=== PATIENT | female | born 1950 | race Caucasian/White ===

== ENCOUNTER 2016-11-08 07:17 | Outpatient (CLI) | payer OTHER, MEDICARE ==
[2016-11-08 13:24] LABS: CHOL/HDL RATIO 3.5 (<4.4); CHOLESTEROL 206 mg/dL; HDL CHOLESTEROL 59 mg/dL; LDL/HDL RATIO 2.1 (<4.4); TRIGLYCERIDES 131 mg/dL; VLDL CHOLESTEROL 26 mg/dL
== END 2016-11-08 07:18 | disposition home or self-care (01) ==
LOC: LAB.WCP 07:17
PROVIDERS: ATTEND Physician Assistant Medical
DX: E78.5 Hyperlipidemia, unspecified (principal)
CPT/HCPCS: 36415; 80061

== ENCOUNTER 2017-03-31 08:54 | Outpatient (CLI) | payer OTHER, MEDICARE ==
--- NOTE | 2017-04-01 19:12 | Mammography Report ---
DIGITAL SCREENING MAMMOGRAM: 03/31/2017 CLINICAL INDICATION: A 66-year-old nulliparous patient for screening. COMPARISON: 03/2016, 07/2014, 06/2013, 03/2012, 09/2010, 08/2009. TECHNIQUE: Routine CC and MLO projections as well as bilateral laterally exaggerated craniocaudal vi ews were obtained of the breasts. The breasts again demonstrate heterogeneously dense fibroglandular parenchyma bilaterally. Coarse an d punctate, typically benign calcifications are present. No suspicious masses, clustered microcalcif ications, or regions of architectural distortion are identified. IMPRESSION: BENIGN FINDINGS. RECOMMENDATION: ROUTINE ANNUAL SCREENING UNLESS OTHERWISE CLINICALLY INDICATED. BIRADS CATEGORY: 2, BENIGN FINDINGS. STANDARD QUALIFYING STATEMENTS 1. This examination was reviewed with the aid of Computed-Aided Detection (CAD). 2. A negative or benign imaging report should not delay biopsy if clinically suspicious findings are present. Consider surgical consultation if warranted. More than 5% of cancers are not identified b y imaging. 3. Dense breasts may obscure an underlying neoplasm. :9 JOB #: [id number] EXT JOB #:[id number]
== END 2017-03-31 08:55 | disposition home or self-care (01) ==
LOC: DI 08:54
PROVIDERS: ATTEND Family Medicine
DX: Z12.31 Encounter for screening mammogram for malignant neoplasm of breast (principal)
CPT/HCPCS: 77067

== ENCOUNTER 2017-10-09 08:00 | Outpatient (CLI) | payer OTHER, MEDICARE ==
[2017-10-09 19:09] LABS: BASOPHILS % (AUTO) 0.7 %; EOSINOPHILS # (AUTO) 0.1 10^3/uL (0.0-0.7); EOSINOPHILS % (AUTO) 1.3 %; HGB - HEMOGLOBIN 13.2 g/dL (12.0-16.0); LYMPHOCYTES # (AUTO) 1.3 10^3/uL (1.5-3.5); LYMPHOCYTES % (AUTO) 27.4 %; MEAN CORPUSCULAR HEMOGLOBIN 31.3 pg (27.0-31.0); MEAN CORPUSCULAR HGB CONC 32.6 g/dL (32.0-36.0); MEAN PLATELET VOLUME 9.9 fL (7.9-10.8); MONOCYTES # (AUTO) 0.4 10^3/uL (0.0-1.0); NEUTROPHILS % (AUTO) 62.6 %; PLT - PLATELET COUNT 183 10^3/uL (130-450); RED BLOOD COUNT 4.22 10^6/uL (4.20-5.40); RED CELL DISTRIBUTION WIDTH 13.4 % (12.0-15.0); WHITE BLOOD COUNT 4.8 x10^3/uL (4.8-10.8)
[2017-10-09 19:28] LABS: ALBUMIN/GLOBULIN RATIO 1.4 (1.0-2.2); ALKALINE PHOSPHATASE 67 IU/L (42-121); ALT ALANINE AMINOTRANSFERASE 17 IU/L (10-60); AST ASPARTATE AMINOTRANSFERASE 26 IU/L (10-42); BILIRUBIN,TOTAL 0.6 mg/dL (0.2-1.0); BUN - BLOOD UREA NITROGEN 28 mg/dL (6-20); CARBON DIOXIDE - CO2 26 mmol/L (21-32); CHLORIDE 104 mmol/L (101-111); CHOL/HDL RATIO 3.9 (<4.4); CHOLESTEROL 210 mg/dL; CREATININE 0.7 mg/dL (0.4-1.0); GFR - MDRD 83 (>89); GLUCOSE 114 mg/dL (70-100); HDL CHOLESTEROL 54 mg/dL; LDL CHOLESTEROL,CALCULATED 118 mg/dL; LDL/HDL RATIO 2.2 (<4.4); SODIUM 138 mmol/L (135-145); TOTAL PROTEIN 6.8 g/dL (6.7-8.2); VLDL CHOLESTEROL 38 mg/dL
== END 2017-10-09 08:01 | disposition home or self-care (01) ==
LOC: LAB.WCP 08:00
PROVIDERS: ATTEND Family Medicine
DX: R10.2 Pelvic and perineal pain (principal)
CPT/HCPCS: 36415; 80053; 80061; 83721; 85025; 86304

== ENCOUNTER 2018-03-18 09:37 | Outpatient (CLI) | payer OTHER, MEDICARE ==
[2018-03-18 14:27] LABS: BASOPHILS % (AUTO) 0.6 %; EOSINOPHILS % (AUTO) 0.7 %; HGB - HEMOGLOBIN 14.3 g/dL (12.0-16.0); LYMPHOCYTES % (AUTO) 16.4 %; MEAN CORPUSCULAR HEMOGLOBIN 32.4 pg (27.0-31.0); MEAN CORPUSCULAR HGB CONC 33.8 g/dL (32.0-36.0); MEAN CORPUSCULAR VOLUME 95.9 fL (81.0-99.0); MEAN PLATELET VOLUME 9.8 fL (7.9-10.8); MONOCYTES # (AUTO) 0.4 10^3/uL (0.0-1.0); MONOCYTES % (AUTO) 7.7 %; NEUTROPHILS # (AUTO) 4.3 10^3/uL (1.5-6.6); NEUTROPHILS % (AUTO) 74.6 %; PLT - PLATELET COUNT 206 10^3/uL (130-450); RED BLOOD COUNT 4.41 10^6/uL (4.20-5.40); RED CELL DISTRIBUTION WIDTH 13.8 % (12.0-15.0); WHITE BLOOD COUNT 5.8 x10^3/uL (4.8-10.8)
[2018-03-18 14:33] LABS: ALBUMIN 4.3 g/dL (3.2-5.5); ALBUMIN/GLOBULIN RATIO 1.5 (1.0-2.2); ALKALINE PHOSPHATASE 68 IU/L (42-121); ALT ALANINE AMINOTRANSFERASE 20 IU/L (10-60); AST ASPARTATE AMINOTRANSFERASE 26 IU/L (10-42); BILIRUBIN,TOTAL 0.7 mg/dL (0.2-1.0); BUN - BLOOD UREA NITROGEN 20 mg/dL (6-20); CHOL/HDL RATIO 3.3 (<4.4); CHOLESTEROL 225 mg/dL; CREATININE 0.8 mg/dL (0.4-1.0); GFR - MDRD 71 (>89); HDL CHOLESTEROL 68 mg/dL; LDL CHOLESTEROL,CALCULATED 129 mg/dL; LDL/HDL RATIO 1.9 (<4.4); TOTAL PROTEIN 7.1 g/dL (6.7-8.2); VLDL CHOLESTEROL 28 mg/dL
[2018-03-18 15:06] LABS: CALCIUM 8.9 mg/dL (8.5-10.3); CARBON DIOXIDE - CO2 27 mmol/L (21-32); CHLORIDE 105 mmol/L (101-111); GLUCOSE 85 mg/dL (70-100); SODIUM 140 mmol/L (135-145)
[2018-03-19 11:22] LABS: HEPATITIS C ANTIBODY REACTIVE (NON-REACTIVE)
== END 2018-03-18 09:38 | disposition home or self-care (01) ==
LOC: LAB.WCP 09:37
PROVIDERS: ATTEND Family Medicine
DX: R73.01 Impaired fasting glucose (principal); E78.5 Hyperlipidemia, unspecified; M85.80 Other specified disorders of bone density and structure, unspecified site; Z11.59 Encounter for screening for other viral diseases
CPT/HCPCS: 36415; 80053; 80061; 83721; 85025; 86803

== ENCOUNTER 2018-03-23 14:51 | Outpatient (CLI) | payer OTHER, MEDICARE ==
--- NOTE | 2018-03-24 09:46 | DEXA Report ---
Reason: OTHER OSTEOPOROSIS Procedure Date: 03/23/2018 Accession Number: [id number] / [id number] Procedure: DEX - Dexa Spine and/or Hip CPT Code: FULL RESULT: EXAM: Dexa Spine and/or Hip DATE: 03/23/2018 3:20 PM CLINICAL HISTORY: Postmenopausal state. History of osteopenia TECHNIQUE: Dual energy x-ray absorptiometry (DXA) was performed on a [employer] System. Regions measured are the AP Spine, femoral neck, and if needed forearm. COMPARISON: 01/04/2016 In accordance with the International Society for Clinical Densitometry (ISCD) guidelines, data from previous exams may be reanalyzed using current recommendations and techniques. This is done to allow a more accurate basis for comparison with the current study. FINDINGS: The data for the lumbar spine is as follows: BMD (g/cm/cm) T-SCORE Z-SCORE REGION L1 1.139 0.1 1.8 L2 1.197 0.0 1.7 L3 1.166 -0.3 1.4 L4 1.380 1.5 3.2 TOTAL 1.226 0.4 2.1 NOTE: All evaluable vertebrae are used for classification The data for the hip is as follows: BMD (g/cm/cm) T-SCORE Z-SCORE REGION Neck 0.833 -1.5 0.2 TOTAL 0.920 -0.7 0.8 NOTE: The femoral neck or total proximal femur, whichever is lowest, is used for classification. DXA RESULTS SUMMARY: Spine SCAN DATE AGE BMD CHANGE VS CHANGE VS PREVIOUS PREVIOUS % 1/23[birth year]2018 [age] 1.226 0.037* 3.1* 01/04/2016 [age] 1[age]189 * Denotes significant change at the 95% confidence level. Denotes dissimilar scan types or analysis methods. DXA RESULTS SUMMARY: Hip SCAN DATE AGE BMD CHANGE VS CHANGE VS PREVIOUS PREVIOUS % 1/23/2018 67.3 0.920 0.019 2.1 01/04/2016 65.1 0.901 * Denotes significant change at the 95% confidence level. Denotes dissimilar scan types or analysis methods. IMPRESSION: THE WHO CLASSIFICATION BASED ON THE INTERNATIONAL REFERENCE STANDARD IS OSTEOPENIA. THE FRACTURE RISK IS INCREASED. RECOMMENDATION: Patients with diagnosis of osteoporosis or osteopenia should have regular bone mineral density assessment. For those eligible for Medicare, routine testing is allowed once every 2 years. Testing frequency can be increased for patients who have rapidly progressing disease or for those who are receiving medical therapy to restore bone mass. COMMENT: World Health Organization (WHO) definitions for osteoporosis and osteopenia: NORMAL BMD: T-score at -1.0 or higher, fracture risk is low OSTEOPENIA BMD: T-score between -1.0 and -2.5, fracture risk is increased. OSTEOPOROSIS BMD: T-score at -2.5 or lower, fracture risk is high. National Osteoporosis Foundation recommends: 1. Obtain adequate dietary calcium (at least 1200 mg per day) and vitamin D (400-800 international units per day). 2. Participate, as appropriate, in regular weightbearing and muscle-strengthening exercise. 3. Avoid tobacco use and reduce alcohol and caffeine intake. 4. For more detailed information see the website at www.NOF.org.
== END 2018-03-23 14:52 | disposition home or self-care (01) ==
LOC: DI 14:51
PROVIDERS: ATTEND Internal Medicine Endocrinology, Diabetes & Metabolism
DX: M85.88 Other specified disorders of bone density and structure, other site (principal)
CPT/HCPCS: 77080

== ENCOUNTER 2018-04-10 08:21 | Outpatient (CLI) | payer OTHER, MEDICARE ==
--- NOTE | 2018-04-13 10:03 | Mammography Report ---
Reason: SCREENING MAMMO Procedure Date: 04/10/2018 Accession Number: [id number] / [id number] Procedure: BERTA - Screening Mammo w/Haseeb CPT Code: FULL RESULT: EXAM: Screening Mammo w/Haseeb DATE: 04/10/2018 8:51 AM CLINICAL HISTORY: Routine screening. No reported personal or family history of breast cancer TECHNIQUE: Bilateral CC and MLO views were obtained. COMPARISON: 03/31/2017 through 06/11/2013 FINDINGS: The breasts demonstrate heterogeneously dense fibroglandular parenchyma bilaterally. There are no suspicious masses, calcifications or areas of distortion. IMPRESSION: Negative examination RECOMMENDATION: Routine annual screening unless otherwise clinically indicated. BI-RADS CATEGORY 1: Negative STANDARD QUALIFYING STATEMENTS: 1. This examination was not reviewed with the aid of Computer-Aided Detection (CAD). 2. A negative or benign imaging report should not preclude biopsy if clinically suspicious findings are present. 3. Dense breasts may obscure an underlying neoplasm. 4. This examination was reviewed with the aid of 3D breast imaging (tomosynthesis).
== END 2018-04-10 08:22 | disposition home or self-care (01) ==
LOC: DI 08:21
DX: Z12.31 Encounter for screening mammogram for malignant neoplasm of breast (principal)
CPT/HCPCS: 77063; 77067

== ENCOUNTER 2018-07-08 08:09 | Outpatient (CLI) | payer BC, MEDICARE, OTHER ==
[2018-07-08 12:40] LABS: ALBUMIN 3.9 g/dL (3.2-5.5); ALBUMIN/GLOBULIN RATIO 1.3 (1.0-2.2); BILIRUBIN,TOTAL 0.9 mg/dL (0.2-1.0); CREATININE 0.7 mg/dL (0.4-1.0); TOTAL PROTEIN 6.8 g/dL (6.7-8.2)
== END 2018-07-08 08:10 | disposition home or self-care (01) ==
LOC: LAB.WCP 08:09
PROVIDERS: ATTEND Family Medicine
DX: R76.0 Raised antibody titer (principal)
CPT/HCPCS: 36415; 80053; 87522

== ENCOUNTER 2018-08-07 13:05 | Outpatient (CLI) | payer BC, MEDICARE, OTHER ==
[2018-08-07 14:19] LABS: T4 (THYROXINE) 8.62 ug/dL (6.09-12.23)
[2018-08-07 14:22] LABS: THYROID STIMULATING HORMONE 1.65 uIU/mL (0.34-5.60)
[2018-08-07 14:25] LABS: FREE T4 (FREE THYROXINE) 1.09 ng/dL (0.58-1.64)
== END 2018-08-07 13:06 | disposition home or self-care (01) ==
LOC: LAB 13:05
PROVIDERS: ATTEND Internal Medicine Endocrinology, Diabetes & Metabolism
DX: E89.0 Postprocedural hypothyroidism (principal); C73 Malignant neoplasm of thyroid gland
CPT/HCPCS: 36415; 84436; 84439; 84443

== ENCOUNTER 2018-08-16 10:32 | Outpatient (CLI) | payer BC, MEDICARE, OTHER | END 2018-08-16 10:33 | disposition short-term general hospital (02) | LOC: EMS 10:32 | PROVIDERS: ATTEND Surgery | DX: R00.2 Palpitations (principal); R53.1 Weakness; R51 Headache | CPT/HCPCS: A0425; A0429; A0888 ==

== ENCOUNTER 2019-05-21 08:22 | Outpatient (CLI) | payer BC, MEDICARE, OTHER ==
--- NOTE | 2019-05-24 08:45 | Mammography Report ---
Reason: ROUTINE MAMMO Procedure Date: 05/21/2019 Accession Number: [id number] / [id number] Procedure: BERTA - Screening Mammo w/Haseeb CPT Code: Final Report FULL RESULT: EXAM: Screening Mammo w/Haseeb DATE: 05/21/2019 8:50 AM CLINICAL HISTORY: Screening encounter. History of nulliparity. TECHNIQUE: (B) - Bilateral CC and MLO views were obtained. COMPARISON: 04/10/2018 through 09/26/2009. PARENCHYMAL PATTERN: (D) - The breast(s) demonstrate(s) heterogeneously dense fibroglandular parenchyma. FINDINGS: There are no suspicious masses, calcifications, or areas of distortion. IMPRESSION: Negative examination. BI-RADS category 1. RECOMMENDATION: (ANNUAL) - Recommend routine annual screening mammography. BI-RADS CATEGORY: (1) - Negative. STANDARD QUALIFYING STATEMENTS: 1. This examination was not reviewed with the aid of Computer-Aided Detection (CAD). 2. A negative or benign imaging report should not preclude biopsy if clinically suspicious findings are present. 3. Dense breasts may obscure an underlying neoplasm. 4. This examination was reviewed with the aid of 3D breast imaging (tomosynthesis).
== END 2019-05-21 08:23 | disposition home or self-care (01) ==
LOC: DI 08:22
DX: Z12.31 Encounter for screening mammogram for malignant neoplasm of breast (principal)
CPT/HCPCS: 77063; 77067

== ENCOUNTER 2020-03-30 08:27 | Outpatient (CLI) | payer BC, MEDICARE, OTHER ==
--- NOTE | 2020-03-30 14:52 | DEXA Report ---
PROCEDURE: Dexa Spine and/or Hip INDICATIONS: OSTEOPOROSIS TECHNIQUE: Dual energy x-ray absorptiometry (DXA) was performed on a [employer] System. Regions measur ed are the AP Spine, femoral neck, and if needed forearm. COMPARISON: 03/23/2018. FINDINGS: Lumbar Spine: Bone Mineral Density 1.187 g/cm/cm,T score 0.1, normal bone mineral density Left Femoral Neck: Bone Mineral Density 0.872 g/cm/cm, T score -1.1, osteopenia (T score greater or equal to -1.0: NORMAL) (T score from -1.1 to -2.4: OSTEOPENIA) (T score less than or equal to -2.5 to: OSTEOPOROSIS) Impression: Osteopenia. Patient is at increased risk for fracture. Patients with diagnosis of osteoporosis or osteopenia should have regular bone mineral density assess ment. For those eligible for Medicare, routine testing is allowed once every 2 years. Testing frequ ency can be increased for patients who have rapidly progressing disease or for those who are receivin g medical therapy to restore bone mass. Reviewed by: Chance Reyes MD on 03/30/2020 2:51 PM PDT Approved by: Chance Reyes MD on 03/30/2020 2:51 PM PDT Station ID: [id number]
== END 2020-03-30 08:28 | disposition home or self-care (01) ==
LOC: DI 08:27
PROVIDERS: ATTEND Internal Medicine Endocrinology, Diabetes & Metabolism
DX: M85.852 Other specified disorders of bone density and structure, left thigh (principal)
CPT/HCPCS: 77080

== ENCOUNTER 2020-06-16 07:58 | Outpatient (CLI) | payer BC, MEDICARE, OTHER ==
[2020-06-16 12:35] LABS: BASOPHILS % (AUTO) 0.7 %; EOSINOPHILS # (AUTO) 0.1 10^3/uL (0.0-0.7); EOSINOPHILS % (AUTO) 1.5 %; HGB - HEMOGLOBIN 14.1 g/dL (12.0-16.0); LYMPHOCYTES # (AUTO) 1.4 10^3/uL (1.5-3.5); LYMPHOCYTES % (AUTO) 33.8 %; MEAN CORPUSCULAR HEMOGLOBIN 31.9 pg (27.0-31.0); MEAN CORPUSCULAR HGB CONC 31.7 g/dL (32.0-36.0); MEAN CORPUSCULAR VOLUME 100.7 fL (81.0-99.0); MEAN PLATELET VOLUME 11.5 fL (7.9-10.8); MONOCYTES # (AUTO) 0.4 10^3/uL (0.0-1.0); MONOCYTES % (AUTO) 9.6 %; NEUTROPHILS # (AUTO) 2.2 10^3/uL (1.5-6.6); NEUTROPHILS % (AUTO) 54.2 %; PLT - PLATELET COUNT 203 10^3/uL (130-450); RED BLOOD COUNT 4.42 10^6/uL (4.20-5.40); RED CELL DISTRIBUTION WIDTH 12.8 % (12.0-15.0); WHITE BLOOD COUNT 4.1 x10^3/uL (4.8-10.8)
[2020-06-16 12:55] LABS: ALBUMIN 4.3 g/dL (3.2-5.5); ALBUMIN/GLOBULIN RATIO 1.7 (1.0-2.2); ALKALINE PHOSPHATASE 66 IU/L (42-121); ALT ALANINE AMINOTRANSFERASE 18 IU/L (10-60); AST ASPARTATE AMINOTRANSFERASE 25 IU/L (10-42); BILIRUBIN,TOTAL 0.8 mg/dL (0.2-1.0); BUN - BLOOD UREA NITROGEN 21 mg/dL (6-20); CARBON DIOXIDE - CO2 28 mmol/L (21-32); CHLORIDE 106 mmol/L (101-111); CHOLESTEROL 242 mg/dL; CREATININE 0.8 mg/dL (0.4-1.0); GLUCOSE 91 mg/dL (70-100); HDL CHOLESTEROL 61 mg/dL; LDL CHOLESTEROL,CALCULATED 167 mg/dL; LDL/HDL RATIO 2.7 (<4.4); SODIUM 142 mmol/L (135-145); TOTAL PROTEIN 6.9 g/dL (6.7-8.2); VLDL CHOLESTEROL 14 mg/dL
[2020-06-16 13:20] LABS: HEMOGLOBIN A1c% 5.4 % (4.27-6.07)
== END 2020-06-16 07:59 | disposition home or self-care (01) ==
LOC: LAB.N 07:58
PROVIDERS: ATTEND Family Medicine
DX: R00.2 Palpitations (principal); E78.5 Hyperlipidemia, unspecified; R73.01 Impaired fasting glucose; C73 Malignant neoplasm of thyroid gland; M85.80 Other specified disorders of bone density and structure, unspecified site
CPT/HCPCS: 36415; 80053; 80061; 83036; 83721; 84443; 85025

== ENCOUNTER 2020-12-26 08:52 | Outpatient (CLI) | payer MEDICARE, OTHER ==
--- NOTE | 2020-12-27 13:48 | Mammography Report ---
BILATERAL DIGITAL SCREENING MAMMOGRAM 3D/2D: 12/26/2020 CLINICAL: Routine screening. Comparison is made to exams dated: 05/21/2019 mammogram, 04/10/2018 mammogram, 03/31/2017 mammogram, 03/08/2016 mammogram, and 08/10/2014 mammogram - [facility]. The tissue of both roberto [address] sts is heterogeneously dense. This may lower the sensitivity of mammography. No significant masses, calcifications, or other findings are seen in either breast. There has been no significant interval change. IMPRESSION: NEGATIVE There is no mammographic evidence of malignancy. A 1 year screening mammogram is recommended. This exam was interpreted at Station ID: [id number]. NOTE: For mammograms, a report in lay terms will be sent to the patient. Approximately 15% of breast malignancies will not be visualized mammographically. In the management of a palpable breast mass, a negative mammogram must not discourage biopsy of a clinically suspicious lesion. Electronically Signed By: Darwin cole/naomy:12/26/2020 11:42:03 ACR BI-RADS Category 1: Negative 3341F PARENCHYMAL PATTERN: (D) - The breast(s) demonstrate(s) heterogeneously dense fibroglandular parsultana giles. BI-RADS CATEGORY: (1) - 1 RECOMMENDATION: (ANNUAL) - Recommend routine annual screening mammography. [id number] 1 year screening LATERALITY: (B)
== END 2020-12-26 08:53 | disposition home or self-care (01) ==
LOC: DI 08:52
DX: Z12.31 Encounter for screening mammogram for malignant neoplasm of breast (principal)

== ENCOUNTER 2021-10-30 07:10 | Outpatient (CLI) | payer MEDICARE, OTHER ==
[2021-10-30 11:49] LABS: BASOPHILS % (AUTO) 0.9 %; EOSINOPHILS % (AUTO) 0.9 %; HCT - HEMATOCRIT 43.1 % (37.0-47.0); HGB - HEMOGLOBIN 14.1 g/dL (12.0-16.0); LYMPHOCYTES # (AUTO) 1.4 10^3/uL (1.5-3.5); LYMPHOCYTES % (AUTO) 31.5 %; MEAN CORPUSCULAR HEMOGLOBIN 31.9 pg (27.0-31.0); MEAN CORPUSCULAR HGB CONC 32.7 g/dL (32.0-36.0); MEAN CORPUSCULAR VOLUME 97.5 fL (81.0-99.0); MEAN PLATELET VOLUME 11.2 fL (7.9-10.8); MONOCYTES # (AUTO) 0.5 10^3/uL (0.0-1.0); MONOCYTES % (AUTO) 10.7 %; NEUTROPHILS # (AUTO) 2.4 10^3/uL (1.5-6.6); NEUTROPHILS % (AUTO) 55.8 %; PLT - PLATELET COUNT 205 10^3/uL (130-450); RED BLOOD COUNT 4.42 10^6/uL (4.20-5.40); RED CELL DISTRIBUTION WIDTH 12.4 % (12.0-15.0); WHITE BLOOD COUNT 4.4 x10^3/uL (4.8-10.8)
[2021-10-30 12:01] LABS: ALBUMIN 4.2 g/dL (3.2-5.5); ALBUMIN/GLOBULIN RATIO 1.6 (1.0-2.2); ALKALINE PHOSPHATASE 63 IU/L (42-121); ALT ALANINE AMINOTRANSFERASE 26 IU/L (10-60); AST ASPARTATE AMINOTRANSFERASE 26 IU/L (10-42); BILIRUBIN,TOTAL 0.7 mg/dL (0.2-1.0); BUN - BLOOD UREA NITROGEN 25 mg/dL (6-20); CARBON DIOXIDE - CO2 28 mmol/L (21-32); CHLORIDE 101 mmol/L (101-111); CHOL/HDL RATIO 2.9 (<4.4); CHOLESTEROL 197 mg/dL; CREATININE 0.8 mg/dL (0.4-1.0); GFR - MDRD 71 (>89); GLUCOSE 87 mg/dL (70-100); HDL CHOLESTEROL 68 mg/dL; LDL CHOLESTEROL,CALCULATED 115 mg/dL; LDL/HDL RATIO 1.7 (<4.4); SODIUM 138 mmol/L (135-145); TOTAL PROTEIN 6.8 g/dL (6.7-8.2); TRIGLYCERIDES 69 mg/dL; VLDL CHOLESTEROL 14 mg/dL
[2021-10-30 12:42] LABS: ESTIMATED AVERAGE GLUCOSE 105 mg/dL (70-100); HEMOGLOBIN A1c% 5.3 % (4.27-6.07)
== END 2021-10-30 07:11 | disposition home or self-care (01) ==
LOC: LAB.N 07:10
PROVIDERS: ATTEND Family Medicine
DX: E78.5 Hyperlipidemia, unspecified (principal); R73.01 Impaired fasting glucose; C73 Malignant neoplasm of thyroid gland
CPT/HCPCS: 36415; 80053; 80061; 83036; 83721; 85025

== ENCOUNTER 2022-03-22 07:50 | Outpatient (CLI) | payer MEDICARE, OTHER ==
--- NOTE | 2022-03-25 11:10 | Mammography Report ---
BILATERAL DIGITAL SCREENING MAMMOGRAM 3D/2D: 03/22/2022 CLINICAL: Routine screening. Comparison is made to exams dated: 12/26/2020 mammogram, 05/21/2019 mammogram, 04/10/2018 mammogram, 1 mammogram, and 03/08/2016 mammogram - [facility]. Both breasts are heterogeneously dense, which may obscure small masses (category c / 51-75% glandular tissue). No significant masses, calcifications, or other findings are seen in either breast. There has been no significant interval change. IMPRESSION: NEGATIVE There is no mammographic evidence of malignancy. A 1 year screening mammogram is recommended. Based on the Tyrer Cuzick model (a risk assessment model) the patients lifetime risk is 5.8% and her 10 year risk is 4.8%. According to the ACR, ACS, and NCCN guidelines, an annual breast MRI exam dorie g with mammogram is recommended if the patients lifetime risk is 20% or greater. This exam was interpreted at Station ID: [id number]. NOTE: For mammograms, a report in lay terms will be sent to the patient. Approximately 15% of breast malignancies will not be visualized mammographically. In the management of a palpable breast mass, a negative mammogram must not discourage biopsy of a clinically suspicious lesion. Electronically Signed By: Chance parry/naomy:03/22/2022 11:08:17 ACR BI-RADS Category 1: Negative 3341F PARENCHYMAL PATTERN: (D) - The breast(s) demonstrate(s) heterogeneously dense fibroglandular chun giles. BI-RADS CATEGORY: (1) - 1 RECOMMENDATION: (ANNUAL) - Recommend routine annual screening mammography. [id number] 1 year screening LATERALITY: (B)
== END 2022-03-22 07:51 | disposition home or self-care (01) ==
LOC: DI 07:50
DX: Z12.31 Encounter for screening mammogram for malignant neoplasm of breast (principal)

== ENCOUNTER 2022-06-05 09:13 | Outpatient (CLI) | payer MEDICARE, OTHER | END 2022-06-05 09:14 | disposition home or self-care (01) | LOC: DI 09:13 | PROVIDERS: ATTEND Nurse Practitioner Family | DX: R03.0 Elevated blood-pressure reading, without diagnosis of hypertension (principal); I08.0 Rheumatic disorders of both mitral and aortic valves | CPT/HCPCS: 93306 ==

== ENCOUNTER 2023-01-17 07:09 | Outpatient (CLI) | payer MEDICARE, OTHER ==
[2023-01-17 12:23] LABS: BASOPHILS # (AUTO) 0.1 10^3/uL (0.0-0.1); BASOPHILS % (AUTO) 1.4 %; EOSINOPHILS # (AUTO) 0.1 10^3/uL (0.0-0.7); EOSINOPHILS % (AUTO) 1.9 %; HCT - HEMATOCRIT 42.7 % (37.0-47.0); HGB - HEMOGLOBIN 14.1 g/dL (12.0-16.0); LYMPHOCYTES # (AUTO) 1.2 10^3/uL (1.5-3.5); LYMPHOCYTES % (AUTO) 33.4 %; MEAN PLATELET VOLUME 10.4 fL (7.9-10.8); MONOCYTES # (AUTO) 0.5 10^3/uL (0.0-1.0); MONOCYTES % (AUTO) 12.5 %; NEUTROPHILS # (AUTO) 1.9 10^3/uL (1.5-6.6); NEUTROPHILS % (AUTO) 50.5 %; PLT - PLATELET COUNT 212 10^3/uL (130-450); RED CELL DISTRIBUTION WIDTH 12.1 % (12.0-15.0); WHITE BLOOD COUNT 3.7 x10^3/uL (4.8-10.8)
[2023-01-17 12:38] LABS: ALBUMIN 4.4 g/dL (3.2-5.5); ALKALINE PHOSPHATASE 85 IU/L (42-121); ALT ALANINE AMINOTRANSFERASE 17 IU/L (10-60); AST ASPARTATE AMINOTRANSFERASE 21 IU/L (10-42); BILIRUBIN,TOTAL 0.6 mg/dL (0.2-1.0); BUN - BLOOD UREA NITROGEN 21 mg/dL (6-20); CALCIUM 9.3 mg/dL (8.5-10.3); CARBON DIOXIDE - CO2 29 mmol/L (21-32); CHLORIDE 103 mmol/L (101-111); CHOL/HDL RATIO 3.3 (<4.4); CHOLESTEROL 218 mg/dL; CREATININE 0.8 mg/dL (0.6-1.3); GFR - MDRD 70 (>89); GLUCOSE 82 mg/dL (74-104); HDL CHOLESTEROL 67 mg/dL; LDL CHOLESTEROL,CALCULATED 133 mg/dL; POTASSIUM 4.3 mmol/L (3.5-4.5); SODIUM 137 mmol/L (135-145); TOTAL PROTEIN 6.6 g/dL (6.4-8.9); TRIGLYCERIDES 91 mg/dL (48-352); VLDL CHOLESTEROL 18 mg/dL
[2023-01-17 12:46] LABS: THYROID STIMULATING HORMONE 2.35 uIU/mL (0.34-5.60)
== END 2023-01-17 07:10 | disposition home or self-care (01) ==
LOC: LAB.N 07:09
PROVIDERS: ATTEND Nurse Practitioner Family
DX: Z00.00 Encounter for general adult medical examination without abnormal findings (principal); E78.5 Hyperlipidemia, unspecified; E03.9 Hypothyroidism, unspecified
CPT/HCPCS: 36415; 80053; 80061; 83721; 84443; 85025

== ENCOUNTER 2023-01-24 08:13 | Outpatient (CLI) | payer MEDICARE, OTHER ==
--- NOTE | 2023-01-24 12:31 | DEXA Report ---
PROCEDURE: Dexa Spine and/or Hip INDICATIONS: POST MENOPAUSAL, OSTEOPENIA TECHNIQUE: Dual energy x-ray absorptiometry (DXA) was performed on a [employer] System. Regions measur ed are the AP Spine, femoral neck, and if needed forearm. COMPARISON: 03/30/2020, 03/23/2018, 01/04/2016 FINDINGS: Lumbar Spine: Bone Mineral Density 1.174 g/cm/cm,T score 0.0. There has been no statistically significant change i n bone mineral density since the most recent prior study. Left Femoral Neck: Bone Mineral Density 0.785 g/cm/cm, T score -1.8. Left Hip: Bone Mineral Density 0.857 g/cm/cm,T score -1.2. There has been no statistically significant change i n bone mineral density since the most recent prior study. (T score greater or equal to -1.0: NORMAL) (T score from -1.1 to -2.4: OSTEOPENIA) (T score less than or equal to -2.5 to: OSTEOPOROSIS) Impression: By WHO criteria, this patient has low bone density (osteopenia). No statistical interval change in bone minteral density of the lumbar spine. No statistical interval change in bone minteral density of the hip. Patients with diagnosis of osteoporosis or osteopenia should have regular bone mineral density assess ment. For those eligible for Medicare, routine testing is allowed once every 2 years. Testing frequ ency can be increased for patients who have rapidly progressing disease or for those who are receivin g medical therapy to restore bone mass. Reviewed by: Solo Clancy MD on 01/24/2023 12:29 PM PDT Approved by: Solo Clancy MD on 01/24/2023 12:29 PM PDT Station ID: [id number]
== END 2023-01-24 08:14 | disposition home or self-care (01) ==
LOC: DI 08:13
PROVIDERS: ATTEND Nurse Practitioner Family
DX: Z78.0 Asymptomatic menopausal state (principal); M85.80 Other specified disorders of bone density and structure, unspecified site

== ENCOUNTER 2023-09-16 13:54 | Outpatient (CLI) | payer MEDICARE, OTHER ==
--- NOTE | 2023-09-17 10:52 | Mammography Report ---
BILATERAL DIGITAL SCREENING MAMMOGRAM 3D/2D: 09/16/2023 CLINICAL: Routine screening. Comparison is made to exams dated: 03/22/2022 mammogram, 12/26/2020 mammogram, 05/21/2019 mammogram, 04/10/2018 mammogram, 03/31/2017 mammogram, and 03/08/2016 mammogram - [facility]. Both breasts are heterogeneously dense, which may obscure small masses (category c / 51-75% glandular tissue). No significant masses, calcifications, or other findings are seen in either breast. There has been no significant interval change. IMPRESSION: NEGATIVE There is no mammographic evidence of malignancy. A 1 year screening mammogram is recommended. Based on the Tyrer Cuzick model (a risk assessment model) the patient's lifetime risk is 5.4% and her 10 year risk is 4.9%. According to the ACR, ACS, and NCCN guidelines, an annual breast MRI exam dorie g with mammogram is recommended if the patient's lifetime risk is 20% or greater. This exam was interpreted at Station ID: [id number]. NOTE: For mammograms, a report in lay terms will be sent to the patient. Approximately 15% of breast malignancies will not be visualized mammographically. In the management of a palpable breast mass, a negative mammogram must not discourage biopsy of a clinically suspicious lesion. Electronically Signed By: Raquel luevano/naomy:09/16/2023 17:03:16 letter sent: No_Letter ACR BI-RADS Category 1: Negative 3341F PARENCHYMAL PATTERN: (D) - The breast(s) demonstrate(s) heterogeneously dense fibroglandular chun giles. BI-RADS CATEGORY: (1) - 1 RECOMMENDATION: (ANNUAL) - Recommend routine annual screening mammography. [id number] 1 year screening LATERALITY: (B)
== END 2023-09-16 13:55 | disposition home or self-care (01) ==
LOC: DI 13:54
DX: Z12.31 Encounter for screening mammogram for malignant neoplasm of breast (principal); R92.333 Mammographic heterogeneous density, bilateral breasts

== ENCOUNTER 2023-11-22 14:43 | Emergency (ER) | payer MEDICARE, OTHER ==
[2023-11-22 15:08] VITALS: BP 148/86; O2SAT 98
--- NOTE | 2023-11-22 15:09 | ED Physician Documentation ---
PD HPI LOWER EXT INJURY - Stated complaint Stated Complaint: RT ANKLE SWOLLEN - Chief complaint Chief Complaint: Trauma Ext - History obtained from History obtained from: Patient - History of Present Illness PD HPI LOW EXT INJURY LOCATION: Right, Ankle Type of injury: Twist (walked too close to edge of walkway and ankle twisted on the uneven edge. Pain with walking/weight bearing.) Timing - onset: Today PD PAST MEDICAL HISTORY - Past Medical History Past Medical History: No - Past Surgical History Past Surgical History: Yes - Present Medications Home Medications: Ambulatory Orders Medication Instructions Recorded Confirmed Levothyroxine [Synthroid] 100 mcg PO QDAC 11/22/15 11/22/23 - Allergies Allergies/Adverse Reactions: Allergies Allergy/AdvReac Type Severity Reaction Status Date / Time No Known Drug Allergies Allergy Verified 11/22/23 15:07 - Social History Does the pt smoke?: No Smoking Status: Never smoker Does the pt drink ETOH?: Yes Does the pt have substance abuse?: No PD ED PE NORMAL - Vitals Vital signs reviewed: Yes - General General: Alert and oriented X 3, No acute distress, Well developed/nourished - Derm Derm: Normal color, Warm and dry - Extremities Extremities: Other (right ankle with tenderness anterolatleral aspect. not tnder at malleolus per se but anterior. Achilles firm and intact. 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 Xray showing no acute fracture. Aircast given for support while healing of strapin. ), d/w patient Departure - Departure Disposition: 01 Home, Self Care Clinical Impression: Ankle injury, Ankle sprain Condition: Stable Record reviewed to determine appropriate education?: Yes Instructions: ED Sprain Ankle Comments: I do not have the radiology report as yet. There is a avulsion piece of bone off the end of the fibula on your ankle x-ray. It looks old and corticated which means a healed surface. I think this represents more your prior injury and not an acute fracture. It seems more likely an acute sprain. However even if this were representing a new fracture it still just a small piece off the end and not involved in the joint per se. It is an attachment point for his ligaments and would be treated with the ankle brace as were doing for the sprain. Activity as tolerated. Use the brace when up and around for the next 2 to 3 weeks until fully healed. Follow-up with your primary care if not improved well over the next week or so. Tylenol 4 times a day if needed for pains. Forms: PCP List Discharge Date/Time: 11/22/23 16:19
--- NOTE | 2023-11-22 18:02 | XRAY Report ---
PROCEDURE: Ankle 3+V RT INDICATIONS: Trauma TECHNIQUE: 3 views of the ankle were acquired. COMPARISON: No prior images are available at time of dictation FINDINGS: Bones: Well-corticated ossific density at the distal fibula tip likely related to sequela of prior t rauma. No acute fractures or dislocations. Ankle mortise is normally aligned. No suspicious bony le sions. Soft tissues: No tibiotalar joint effusion. Achilles tendon appears normal. IMPRESSION: Well-corticated ossific density at the distal fibular tip favored to represent sequela of prior traum a. No acute fracture identified. If pain persists with conservative management, consider further evaluation with repeat radiographs in 5-7 days or cross-sectional imaging such as CT or MRI. Reviewed by: Azeb Mederos MD, PhD on 11/22/2023 5:01 PM [place] Approved by: Azeb Mederos MD, PhD on 11/22/2023 5:01 PM [place] Station ID: [id number]
== END 2023-11-22 16:19 | disposition home or self-care (01) ==
LOC: ED 14:43
DX: S93.401A Sprain of unspecified ligament of right ankle, initial encounter (principal); X50.1XXA Overexertion from prolonged static or awkward postures, initial encounter
CPT/HCPCS: 99283; 99284

== ENCOUNTER 2024-01-29 11:39 | Outpatient (CLI) | payer MEDICARE, OTHER ==
[2024-01-29 18:28] LABS: THYROID STIMULATING HORMONE 3.43 uIU/mL (0.34-5.60)
== END 2024-01-29 11:40 | disposition home or self-care (01) ==
LOC: LAB.N 11:39
PROVIDERS: ATTEND Nurse Practitioner Family
DX: E03.9 Hypothyroidism, unspecified (principal)
CPT/HCPCS: 36415; 84443

== ENCOUNTER 2024-02-12 16:50 | Outpatient (CLI) | payer MEDICARE, OTHER ==
[2024-02-12 21:39] LABS: BASOPHILS % (AUTO) 0.8 %; EOSINOPHILS % (AUTO) 0.8 %; HCT - HEMATOCRIT 42.7 % (37.0-47.0); HGB - HEMOGLOBIN 13.9 g/dL (12.0-16.0); LYMPHOCYTES # (AUTO) 1.6 10^3/uL (1.5-3.5); LYMPHOCYTES % (AUTO) 30.4 %; MEAN CORPUSCULAR HEMOGLOBIN 31.7 pg (27.0-31.0); MEAN CORPUSCULAR HGB CONC 32.6 g/dL (32.0-36.0); MEAN CORPUSCULAR VOLUME 97.5 fL (81.0-99.0); MEAN PLATELET VOLUME 10.4 fL (7.9-10.8); MONOCYTES # (AUTO) 0.6 10^3/uL (0.0-1.0); MONOCYTES % (AUTO) 11.7 %; NEUTROPHILS % (AUTO) 56.1 %; PLT - PLATELET COUNT 242 10^3/uL (130-450); RED BLOOD COUNT 4.38 10^6/uL (4.20-5.40); RED CELL DISTRIBUTION WIDTH 12.6 % (12.0-15.0); WHITE BLOOD COUNT 5.3 x10^3/uL (4.8-10.8)
[2024-02-12 22:27] LABS: ALBUMIN 4.6 g/dL (3.2-5.5); ALBUMIN/GLOBULIN RATIO 2.6 (1.0-2.2); BILIRUBIN,TOTAL 0.4 mg/dL (0.2-1.0); CALCIUM 9.2 mg/dL (8.5-10.3); CREATININE 0.6 mg/dL (0.6-1.3); POTASSIUM 4.2 mmol/L (3.5-4.5); TOTAL PROTEIN 6.4 g/dL (6.4-8.9)
[2024-02-12 22:45] LABS: FERRITIN 148.5 ng/mL (11.0-306.8)
== END 2024-02-12 16:51 | disposition home or self-care (01) ==
LOC: LAB.N 16:50
PROVIDERS: ATTEND Nurse Practitioner Family
DX: R53.83 Other fatigue (principal); R55 Syncope and collapse
CPT/HCPCS: 36415; 80053; 82607; 82728; 82746; 83540; 84466; 85025